=== PATIENT | male | born 1990 | race Asian ===

== ENCOUNTER 2019-04-01 14:32 | Inpatient (IN) | payer SELFPAY ==
[2019-04-01] VITALS (10 sets, daily range): BP systolic 85–100; BP diastolic 40–63
[~2019-04-01] VITALS: Ht 160 cm; Wt 52.2 kg
[2019-04-01] MEDS ORDERED: IV NORMAL SALINE 1000ML BAG 1,000 ML IV ONE (14:45)
[2019-04-01] MEDS ORDERED: IV NORMAL SALINE 1000ML BAG 1,000 ML IV SCH (14:49)
[2019-04-01] MEDS ORDERED: MULTIVIT INFUSN,ADULT 4,VIT K 10 ML, THIAMINE INJ 100 MG, FOLIC ACID INJ 1 MG in IV NOR... IV ONE (15:00)
[2019-04-01] MEDS ORDERED: DIPHTH,PERTUSS(ACELL),TET TOX 0.5 ML DISP.SYRIN. VAX IM ONE (15:00)
[2019-04-01 15:08] LABS: BASO % 1 % (0-3); EOS # 0.4 x10^3/uL (0.0-0.7); EOS % 7 % (0-3); HEMATOCRIT 43.8 % (39.0-53.0); HEMOGLOBIN 14.6 g/dL (13.0-17.5); LYMPH # 3.3 x10^3/uL (1.0-4.8); LYMPH % 52 % (24-48); MEAN CORPUSCULAR HEMOGLOBIN 28 pg (25-35); MEAN CORPUSCULAR HGB CONC 33 g/dL (31-37); MEAN CORPUSCULAR VOLUME 85 fL (79-100); MONO # 0.5 x10^3/uL (0.0-1.1); MONO % 7 % (0-9); NEUT # 2.1 x10^3/uL (1.8-7.7); NEUT % 34 % (31-73); PLATELET COUNT 226 x10^3/uL (140-400); RED BLOOD COUNT 5.16 x10^6/uL (4.30-5.70); RED CELL DISTRIBUTION WIDTH 12.9 % (11.5-14.5); WHITE BLOOD COUNT 6.3 x10^3/uL (4.0-11.0)
[2019-04-01 15:11] LABS: CALCIUM 8.3 mg/dL (8.5-10.1); CREATININE 0.7 mg/dL (0.7-1.3); GFR 134.3; POTASSIUM 3.6 mmol/L (3.5-5.1)
[2019-04-01 15:14] LABS: PROTHROMBIN TIME PATIENT 13.3 SEC (11.7-14.0)
[2019-04-01 15:18] LABS: ALBUMIN 3.7 g/dL (3.4-5.0); DIRECT BILIRUBIN 0.1 mg/dL (0.0-0.2); MAGNESIUM 1.9 mg/dL (1.8-2.4); TOTAL BILIRUBIN 0.2 mg/dL (0.2-1.0); TOTAL PROTEIN 7.5 g/dL (6.4-8.2)
--- NOTE | 2019-04-01 16:55 | PHYS DOC ---
Past Medical History Past Medical History: No Pertinent History Past Surgical History: No Surgical History Alcohol Use: Occasionally Drug Use: None Adult General Chief Complaint Chief Complaint: ALCOHOL INTOXICATION HPI HPI Patient is a 29 year old male who presents via POV with with alcohol intoxication and fall. Patient brought in by his brother who stated he was drinking alcohol when he was in the soccer game today and fell asleep and had a fall and injured his face. Patient has had history of alcohol abuse and alcoholism and is alert and oriented �1 and unable to give history. Last tetanus immunization is unknown. Review of Systems Review of Systems Unable to obtain because of alcohol intoxication Current Medications Current Medications Current Medications Medications (Trade) Dose Ordered Sig/Joshua Start Time Stop Time Status Last Admin Dose Admin Diphtheria/ Tetanus/Acell Pertussis (Boostrix) 0.5 ml ONCE ONCE 04/01/19 15:00 04/01/19 15:01 DC 04/01/19 15:33 0.5 ML Multivitamins 10 ml/Thiamine HCl 100 mg/Folic Acid 1 mg/Sodium Chloride 1,011.2 ml @ 1,000 mls/ hr 1X ONCE 04/01/19 15:00 04/01/19 16:00 DC 04/01/19 15:32 1,000 MLS/HR Sodium Chloride 1,000 ml @ 1,000 mls/hr Q1H 04/01/19 14:49 04/01/19 15:48 DC Allergies Allergies Allergies Coded Allergies Type Severity Reaction Last Updated Verified Unable to Assess 04/01/19 No Physical Exam Physical Exam Constitutional: Well nourished, mild distress, non-toxic appearance, smell of alcohol on breath. [] HENT: Normocephalic, left forehead contusion contusion and edema of left side of lower lip Eyes: PERRLA, EOMI, conjunctiva normal, no discharge. [] Neck: Normal range of motion, no tenderness, supple, no stridor. [] Cardiovascular:Heart rate regular rhythm, no murmur [] Lungs & Thorax: Bilateral breath sounds clear to auscultation [] Abdomen: Bowel sounds normal, soft, no tenderness, no masses, no pulsatile masses. [] Skin: Warm, dry, no erythema, no rash. [] Back: No tenderness, no CVA tenderness. [] Extremities: No tenderness, no cyanosis, no clubbing, ROM intact, no edema. [] Neurologic: Alert and oriented X 1 no focal deficits noted. [] Psychologic: Affect anxious and uncooperative Current Patient Data Vital Signs Vital Signs Date Time Temp Pulse Resp B/P (MAP) Pulse Ox O2 Delivery O2 Flow Rate FiO2 04/01/19 15:33 90 18 102/60 (74) 100 Room Air 04/01/19 14:33 98.2 98.2 Lab Values Laboratory Tests Test 04/01/19 14:40 White Blood Count 6.3 x10^3/uL (4.0-11.0) Red Blood Count 5.16 x10^6/uL (4.30-5.70) Hemoglobin 14.6 g/dL (13.0-17.5) Hematocrit 43.8 % (39.0-53.0) Mean Corpuscular Volume 85 fL (79-100) Mean Corpuscular Hemoglobin 28 pg (25-35) Mean Corpuscular Hemoglobin Concent 33 g/dL (31-37) Red Cell Distribution Width 12.9 % (11.5-14.5) Platelet Count 226 x10^3/uL (140-400) Neutrophils (%) (Auto) 34 % (31-73) Lymphocytes (%) (Auto) 52 % (24-48) H Monocytes (%) (Auto) 7 % (0-9) Eosinophils (%) (Auto) 7 % (0-3) H Basophils (%) (Auto) 1 % (0-3) Neutrophils # (Auto) 2.1 x10^3/uL (1.8-7.7) Lymphocytes # (Auto) 3.3 x10^3/uL (1.0-4.8) Monocytes # (Auto) 0.5 x10^3/uL (0.0-1.1) Eosinophils # (Auto) 0.4 x10^3/uL (0.0-0.7) Basophils # (Auto) 0.0 x10^3/uL (0.0-0.2) Prothrombin Time 13.3 SEC (11.7-14.0) Prothrombin Time INR 1.0 (0.8-1.1) Sodium Level 144 mmol/L (136-145) Potassium Level 3.6 mmol/L (3.5-5.1) Chloride Level 107 mmol/L (98-107) Carbon Dioxide Level 25 mmol/L (21-32) Anion Gap 12 (6-14) Blood Urea Nitrogen 7 mg/dL (8-26) L Creatinine 0.7 mg/dL (0.7-1.3) Estimated GFR (Cockcroft-Gault) 134.3 Glucose Level 97 mg/dL (70-99) Calcium Level 8.3 mg/dL (8.5-10.1) L Magnesium Level 1.9 mg/dL (1.8-2.4) Total Bilirubin 0.2 mg/dL (0.2-1.0) Direct Bilirubin 0.1 mg/dL (0.0-0.2) Aspartate Amino Transferase (AST) 69 U/L (15-37) H Alanine Aminotransferase (ALT) 32 U/L (16-63) Alkaline Phosphatase 92 U/L (46-116) Total Protein 7.5 g/dL (6.4-8.2) Albumin 3.7 g/dL (3.4-5.0) Ethyl Alcohol Level 473 mg/dL (0-10) *H Laboratory Tests 04/01/19 14:40 Laboratory Tests 04/01/19 14:40 EKG EKG [] Radiology/Procedures Radiology/Procedures [][facility] [address] [place], [place] [id number] IMAGING REPORT Signed PATIENT: DANIELA ANTHONY ACCOUNT: [id number] : 1990 LOCATION: [address] [place] [address] AGE: 29 SEX: M EXAM STATUS: ADM IN ORD. PHYSICIAN: AMIE MAN MD REASON: alcohol intoxication and fall FACE LACERATION LEFT SIDED ABOVE EYE PROCEDURE: CT HEAD AND CERVICAL SPINE WO Exam performed: CT scan of the head, cervical spine and maxillofacial structures without contrast. Date of Service: 04/01/2019 Comparison: None available Clinical History: Alcohol intoxication, facial laceration Technique: Helical acquisitions are obtained from the foramen magnum to the vertex without intravenous administration of contrast. In addition helical acquisitions are obtained through the cervical spine and maxillofacial structures. Sagittal and coronal reformatted images are obtained and reviewed. CT scan head findings: The ventricular system is midline without evidence of dilatation. Normal muñoz-white differentiation is maintained. There is no extra axial fluid collection, intraparenchymal hemorrhage or mass lesion. The visualized orbits and the mastoid air cells are clear. Small air-fluid level seen in the left maxillary sinus. The calvarium is intact. Impression: 1. Small air-fluid level seen in the left maxillary sinus. 2. No acute intracranial process detected. End Impression. CT cervical spine findings: Normal sagittal alignment is preserved. The vertebral body heights and intravertebral disc spaces are maintained. There is no uri or retrolisthesis. No prevertebral soft tissue swelling is identified. There are no fractures. No definite lymphadenopathy or masses are seen within the neck. The visualized thyroid and salivary glands appears preserved. Impression: 1. No acute abnormality seen in the CT scan cervical spine. End impression Findings: There is small air-fluid level in the both maxillary sinus, the remainder paranasal sinuses are clear The bony orbital margins and the intraocular contents are bilaterally symmetric and unremarkable. There is mild soft tissue swelling in the left supraorbital region. Both ostiomeatal complexes are preserved. Nasal bones and zygomatic arches are preserved.No abnormal fluid collections or hematoma formation seen. The visualized portion of the brain is normal. Impression: 1. Soft tissue swelling in the left supraorbital region without underlying bony abnormality involving the orbits. 2. Periosteal thickening involving both paranasal sinuses without acute fracture. PQRS Compliance Statement: One or more of the following individualized dose reduction techniques were utilized for this examination: 1. Automated exposure control 2. Adjustment of the mA and/or kV according to patient size 3. Use of iterative reconstruction technique Electronically signed by: Rema Gant MD (04/01/2019 5:09 PM) [facility] DICTATED and SIGNED BY: REMA GANT MD DATE: 04/01/19 5251 Course & Med Decision Making Course & Med Decision Making Pertinent Labs and Imaging studies reviewed. (See chart for details) Evaluation of patient in ER showed 29-year-old male patient with alcohol intoxication and facial injury. C-collar was placed at arrival of patient in ER. Patient was agitated and removed his IV line twice and the c-collar. Fortunately CT of head and maxillofacial bones and cervical spine did not show acute finding. Patient treated with Geodon 20 mg IM because of agitation.Patient requiring admission for further evaluation and treatment. Discussed with Dr. Tripathi who is in agreement with admission. Discussed findings and plan with patient and family, who acknowledge understanding and agreement. Dragon Disclaimer Dragon Disclaimer This electronic medical record was generated, in whole or in part, using a voice recognition dictation system. Departure Departure Impression: Primary Impression: Alcohol intoxication Additional Impressions: Facial contusion Fall Disposition: 09 ADMITTED INPATIENT (at 1553) Admitting Physician: PRIYA (Dr Tripathi accepted admission at 1553) Condition: GUARDED Referrals: NO PCP (PCP) Problem Qualifiers Primary Impression: Alcohol intoxication Complication of substance-induced condition: with unspecified complication Qualified Codes: F10.929 - Alcohol use, unspecified with intoxication, unspecified Additional Impressions: Facial contusion Encounter type: subsequent encounter Qualified Codes: S00.83XD - Contusion of other part of head, subsequent encounter Fall Encounter type: subsequent encounter Qualified Codes: W19.XXXD - Unspecified fall, subsequent encounter AMIE MAN MD Apr 01, 2019 16:55
[2019-04-01] MEDS ORDERED: ZIPRASIDONE IM 20 MG VIAL. IM ONE (17:00)
--- NOTE | 2019-04-01 17:11 | RAD ---
Exam performed: CT scan of the head, cervical spine and maxillofacial structures without contrast. Date of Service: 04/01/2019 Comparison: None available Clinical History: Alcohol intoxication, facial laceration Technique: Helical acquisitions are obtained from the foramen magnum to the vertex without intravenous administration of contrast. In addition helical acquisitions are obtained through the cervical spine and maxillofacial structures. Sagittal and coronal reformatted images are obtained and reviewed. CT scan head findings: The ventricular system is midline without evidence of dilatation. Normal muñoz-white differentiation is maintained. There is no extra axial fluid collection, intraparenchymal hemorrhage or mass lesion. The visualized orbits and the mastoid air cells are clear. Small air-fluid level seen in the left maxillary sinus. The calvarium is intact. Impression: 1. Small air-fluid level seen in the left maxillary sinus. 2. No acute intracranial process detected. End Impression. CT cervical spine findings: Normal sagittal alignment is preserved. The vertebral body heights and intravertebral disc spaces are maintained. There is no uri or retrolisthesis. No prevertebral soft tissue swelling is identified. There are no fractures. No definite lymphadenopathy or masses are seen within the neck. The visualized thyroid and salivary glands appears preserved. Impression: 1. No acute abnormality seen in the CT scan cervical spine. End impression Findings: There is small air-fluid level in the both maxillary sinus, the remainder paranasal sinuses are clear The bony orbital margins and the intraocular contents are bilaterally symmetric and unremarkable. There is mild soft tissue swelling in the left supraorbital region. Both ostiomeatal complexes are preserved. Nasal bones and zygomatic arches are preserved.No abnormal fluid collections or hematoma formation seen. The visualized portion of the brain is normal. Impression: 1. Soft tissue swelling in the left supraorbital region without underlying bony abnormality involving the orbits. 2. Periosteal thickening involving both paranasal sinuses without acute fracture. PQRS Compliance Statement: One or more of the following individualized dose reduction techniques were utilized for this examination: 1. Automated exposure control 2. Adjustment of the mA and/or kV according to patient size 3. Use of iterative reconstruction technique Electronically signed by: Rema Gant MD (04/01/2019 5:09 PM) [facility]
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
--- NOTE | 2019-04-01 17:45 | NUR ---
pt assessed upon admission. lung sounds clear. pt not oriented to place or time. skin assessment unremarkable with the exception of lac above left eyebrow from fall prior to admit. pt with C-collar on. 1:1 at bedside while pt in restraints
[2019-04-01] MEDS ORDERED: LORazepam 1 MG TABLET PO PRN (18:45)
[2019-04-01] MEDS ORDERED: HALOPERIDOL LACTATE 5 MG/ML VIAL. IVP PRN ×2 (18:45)
[2019-04-01] MEDS ORDERED: fentaNYL PF VIAL 100 MCG/2 ML VIAL IV PRN (18:45)
[2019-04-01] MEDS ORDERED: OLANZapine IM 10 MG VIAL. IM PRN (18:45)
--- NOTE | 2019-04-01 19:33 | NUR ---
pt given haldol and ativan. no longer showing signs of aggression or agitation. pt resting in bed. 4 point restraints removed per orders from Dr. Tripathi
[2019-04-01] MEDS: IV NORMAL SALINE 1000ML BAG 1,000 ML IV SCH (19:57)
--- NOTE | 2019-04-01 20:20 | HP ---
ADMIT DATE: 04/01/2019 CHIEF COMPLAINT: Alcohol intoxication. HISTORY OF PRESENT ILLNESS: The patient is a pleasant, healthy middle-aged male who went to a soccer game today and then got drunk. His alcohol level is now 473. He has to be admitted. He fell down and hit his face. Now, we had to put him in 4 other restraints because he was so combative. We have given him some chemicals to help calm him down as well. The patient is being examined in room 584 currently. PAST MEDICAL HISTORY: Probable alcohol abuse. ALLERGIES: None. FAMILY HISTORY: Hypertension. SOCIAL HISTORY: He does drink. No smoking or drugs that we know of. MEDICATIONS: Reviewed, please refer to the MRAD. REVIEW OF SYSTEMS: Unable to obtain. PHYSICAL EXAMINATION: VITALS: Within normal limits and are stable. GENERAL: No apparent distress. Alert and oriented. HEENT: Head is normocephalic, atraumatic, pupils were equally round and reactive to light and accommodation. He has a C-collar on. NECK: Supple, no JVD, no thyromegaly was noted. LUNGS: Clear to auscultation in all lung gaxiola without rhonchi or wheezing. HEART: RRR, S1, S2 present. Peripheral pulses intact, no obvious murmurs were noted. ABDOMEN: Soft, nontender. Positive bowel sounds no organomegaly, normal bowel sounds. EXTREMITIES: Without any cyanosis, clubbing, or edema. Pedal pulses intact, Homans sign is negative. NEUROLOGIC: He is sedated. PSYCHIATRIC: Normal affect, normal mood. Stable. SKIN: No ulcerations or rashes, good skin turgor, no jaundice. VASCULAR: Good capillary refill, neurovascular bundle appears to be intact. LABORATORY DATA: Alcohol level was 473. ASSESSMENT AND PLAN: Alcohol intoxication and closed head injury after a fall. The patient has been admitted, reason 4-point level restraints for the next couple of hours and we hope to change him over to just chemical restraints. If he is stable tomorrow, we hope to discharge. DVT prophylaxis, home meds. KYLE VO DO DR: PLACIDO/violeta JOB#: [id number] / [id number]
[2019-04-02 00:17] VITALS: BP 94/41
[2019-04-02] MEDS: IV NORMAL SALINE 1000ML BAG 1,000 ML IV SCH ×3 (01:13→13:20)
[2019-04-02 02:17] VITALS: BP 96/51
[2019-04-02 07:00] VITALS: BP 101/58
[2019-04-02] MEDS ORDERED: MULTIVIT INFUSN,ADULT 4,VIT K 10 ML, THIAMINE INJ 100 MG, FOLIC ACID INJ 1 MG in IV NOR... IV SCH (09:00)
--- NOTE | 2019-04-02 10:42 | NUR ---
Wound photos taken last night upon admission.
[2019-04-02 11:00] VITALS: BP 96/58
--- NOTE | 2019-04-02 14:14 | PDOC ---
[employer] PROGRESS NOTE Chief Complaint Chief Complaint Alcohol Intoxication Facial Contusion Fall History of Present Illness History of Present Illness 04/02/19 Pt seen and examined lying in bed Discussed previous evening; pt does not recall admission DW RN Chart reviewed Vitals/I&O Vitals/I&O: Vital Signs Date Time Temp Pulse Resp B/P (MAP) Pulse Ox O2 Delivery O2 Flow Rate FiO2 04/02/19 11:00 97.8 102 18 96/58 (71) 98 Room Air 97.8 I & O 04/01/19 04/01/19 04/02/19 14:59 22:59 06:59 Intake Total 2011.2 ml 0 ml Output Total 600 ml 900 ml Balance 1411.2 ml -900 ml Physical Exam General: Alert, Oriented X3, Cooperative, No acute distress Heart: Regular rate, Normal S1, Normal S2, No murmurs Lungs: Clear Abdomen: Normal bowel sounds, Soft Extremities: No clubbing, No cyanosis, No edema, Normal pulses Skin: No rashes, No breakdown, Other (head contusion) Labs Labs: Laboratory Tests Test 04/01/19 14:40 White Blood Count 6.3 x10^3/uL (4.0-11.0) Red Blood Count 5.16 x10^6/uL (4.30-5.70) Hemoglobin 14.6 g/dL (13.0-17.5) Hematocrit 43.8 % (39.0-53.0) Mean Corpuscular Volume 85 fL (79-100) Mean Corpuscular Hemoglobin 28 pg (25-35) Mean Corpuscular Hemoglobin Concent 33 g/dL (31-37) Red Cell Distribution Width 12.9 % (11.5-14.5) Platelet Count 226 x10^3/uL (140-400) Neutrophils (%) (Auto) 34 % (31-73) Lymphocytes (%) (Auto) 52 % (24-48) Monocytes (%) (Auto) 7 % (0-9) Eosinophils (%) (Auto) 7 % (0-3) Basophils (%) (Auto) 1 % (0-3) Neutrophils # (Auto) 2.1 x10^3/uL (1.8-7.7) Lymphocytes # (Auto) 3.3 x10^3/uL (1.0-4.8) Monocytes # (Auto) 0.5 x10^3/uL (0.0-1.1) Eosinophils # (Auto) 0.4 x10^3/uL (0.0-0.7) Basophils # (Auto) 0.0 x10^3/uL (0.0-0.2) Prothrombin Time 13.3 SEC (11.7-14.0) Prothromb Time International Ratio 1.0 (0.8-1.1) Sodium Level 144 mmol/L (136-145) Potassium Level 3.6 mmol/L (3.5-5.1) Chloride Level 107 mmol/L (98-107) Carbon Dioxide Level 25 mmol/L (21-32) Anion Gap 12 (6-14) Blood Urea Nitrogen 7 mg/dL (8-26) Creatinine 0.7 mg/dL (0.7-1.3) Estimated GFR (Cockcroft-Gault) 134.3 Glucose Level 97 mg/dL (70-99) Calcium Level 8.3 mg/dL (8.5-10.1) Magnesium Level 1.9 mg/dL (1.8-2.4) Total Bilirubin 0.2 mg/dL (0.2-1.0) Direct Bilirubin 0.1 mg/dL (0.0-0.2) Aspartate Amino Transf (AST/SGOT) 69 U/L (15-37) Alanine Aminotransferase (ALT/SGPT) 32 U/L (16-63) Alkaline Phosphatase 92 U/L (46-116) Total Protein 7.5 g/dL (6.4-8.2) Albumin 3.7 g/dL (3.4-5.0) Ethyl Alcohol Level 473 mg/dL (0-10) Review of Systems Review of Systems: No co acute pain No co SOB Assessment and Plan Assessmemt and Plan Problems Medical Problems: (1) Alcohol intoxication Status: Acute (2) Facial contusion Status: Acute (3) Fall Status: Acute Assessment Alcohol Intoxication Facial Contusion Fall Plan Discharge today IV fluids Full Code DVT Prophylaxis PT/OT Comment Review of Relevant I have reviewed the following items yuliana (where applicable) has been applied. Medications: Current Medications Medications (Trade) Dose Ordered Sig/Joshua Route PRN Reason Start Time Stop Time Status Last Admin Dose Admin Sodium Chloride 1,000 ml @ 1,000 mls/hr 1X ONCE IV 04/01/19 14:45 04/01/19 15:44 DC 04/01/19 14:44 Sodium Chloride 1,000 ml @ 1,000 mls/hr Q1H IV 04/01/19 14:49 04/01/19 15:48 DC 04/01/19 18:10 Multivitamins 10 ml/Thiamine HCl 100 mg/Folic Acid 1 mg/Sodium Chloride 1,011.2 ml @ 1,000 mls/ hr 1X ONCE IV 04/01/19 15:00 04/01/19 16:00 DC 04/01/19 15:32 Diphtheria/ Tetanus/Acell Pertussis (Boostrix) 0.5 ml ONCE ONCE VAX IM 04/01/19 15:00 04/01/19 15:01 DC 04/01/19 15:33 Ziprasidone (Geodon Im) 20 mg 1X ONCE IM 04/01/19 17:00 04/01/19 17:01 DC 04/01/19 16:54 Sodium Chloride 1,000 ml @ 150 mls/hr Q6H40M IV 04/01/19 17:20 04/02/19 17:19 04/02/19 08:48 Lorazepam (Ativan Inj) 2 mg PRN Q2HRS PRN IV ANXIETY / AGITATION 04/01/19 18:45 04/02/19 02:13 Haloperidol Lactate (Haldol Inj) 5 mg PRN Q6HRS PRN IVP AGITATION 04/01/19 18:45 04/01/19 20:42 DC 04/01/19 18:57 Multivitamins 10 ml/Thiamine HCl 100 mg/Folic Acid 1 mg/Sodium Chloride 1,011.2 ml @ 100 mls/ hr DAILY IV 04/02/19 09:00 04/06/19 19:07 04/02/19 09:06 Haloperidol Lactate (Haldol Inj) 5 mg PRN Q4HRS PRN IVP Hallucinatns,Confusn,Delirium 04/01/19 18:45 04/01/19 23:10 KYLE VO III DO Apr 02, 2019 14:14
[2019-04-02 14:56] VITALS: BP 99/60
--- NOTE | 2019-04-02 15:29 | NUR ---
Discharge Note: ,[address] Discharge instructions and discharge home medications reviewed with Patient and a copy given. All questions have been answered and understanding verbalized. The following instructions and handouts were given: discharge instructions, education and resources to help with alcohol problems. Discontinued lines and drains: Peripheral IV discontinued intact. Patient discharged to Home or Self Care with Family Member via Wheelchair off unit by SAW.
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
[2019-04-07] MEDS ORDERED: FOLIC ACID 1 MG TABLET. PO SCH (09:00)
[2019-04-07] MEDS ORDERED: MULTIVITAMIN with MINERAL TABLET. PO SCH (09:00)
== END 2019-04-02 15:33 | disposition home or self-care (01) | DRG 605 ==
LOC: ER 14:32 → 5 SOUTH 15:48
PROVIDERS: ADMIT Internal Medicine; ATTEND Internal Medicine
DX: S00.83XA Contusion of other part of head, initial encounter (principal); F10.129 Alcohol abuse with intoxication, unspecified; W18.39XA Other fall on same level, initial encounter; Z82.49 Family history of ischemic heart disease and other diseases of the circulatory system; Y92.89 Other specified places as the place of occurrence of the external cause; Y99.8 Other external cause status; Y93.66 Activity, soccer
CPT/HCPCS: 36415; 70450; 70486; 72125; 80048; 80076; 83735; 85025; 85610; 90471; 90715; 96361; 96365; 96372; G0480; J1630; J2060; J3486; J7030; 99285-25; G0378